=== PATIENT | male | born 1960 | race Caucasian/White ===

== ENCOUNTER 2021-03-14 10:40 | Inpatient (IN) | payer OTHER ==
[~2021-03-14] VITALS: Ht 190.5 cm; Wt 117.9 kg
--- NOTE | 2021-03-14 16:44 | NUR ---
THIS RN DOWN TO E.R TO BRING PT. RT PRESENT WELL TO TRANSFER PT'S CPAP. PT ALERT AND ORIENTED AND WAS BROUGHT DOWN TO THE CCU VIA NONREBREATHER AT 15L. PT ARRIVED TO CCU AT 1540. PT ABLE TO STAND UP AND PIVOT OVER TO THE CCU BED. RT THEN PLACED PT ON THE CPAP AT 10 AND 60% FIO2. PT VITALS TAKEN, PT ASSESSED. SCHEDULED IV REMDESEVIR STARTED ORDERED ALONG WITH PRN TYLENOL FOR A TEMPERATURE OF 100.0. REMDESEVIR COMPLETE WHILE ASSESSING PT AND PT WAS SALINE LOCKED. PT ASSISTED OVER TO HIS LEFT SIDE AFTERWARDS AND WAS TITRATED DOWN TO 50%. PT REPORTS NO FURTHER NEEDS AT THIS TIME AND IS NOW RESTING ON HIS LEFT SIDE, WILL CONTINUE PLAN OF CARE. CALL LIGHT IN REACH, BED IN LOWEST POSITION.
--- NOTE | 2021-03-14 19:00 | NUR ---
THIS RN IN TO CHECK ON PT. PT LAYING IN BED AWAKE AND ALERT ON THE CPAP, SETTINGS UNCHANGED, SPO2 92%. PT ASKED IF HE NEEDED TO VOID, PT STATED YES. PT ASSISTED IN STANDING AT THE BEDSIDE TO USE THE URINAL. PT PUT ON 100% FIO2 WHILE STANDING UP AND MAINTAINED AN SPO2 AT 95-100% BUT DID BECOME SOB WITH EXERTION. PT ABLE TO VOID 500ML OF OBIE URINE WHICH PT STATES HAS BEEN HIS URINE COLOR FOR RECENTLY. PT NOW BACK TO BED AND ASSISTED IN LAYING ON HIS RIGHT SIDE. PT REPORTS NO FURTHER NEEDS, FIO2 BACK TO 50%, SPO2 AT 93%. PT REPORTS NO FURTHER NEEDS WHEN ASKED, WILL CONTINUE PLAN OF CARE. CALL LIGHT IN REACH, BED IN LOWEST POSITION.
--- NOTE | 2021-03-14 19:30 | NUR ---
REPORT RECEIVED FROM TIMBO NYE. PT RESTING IN BED, HR 60'S AND SPO2 93%.
--- NOTE | 2021-03-14 21:00 | NUR ---
pt assessment completed, discussed plan of care with pt and education about proning. pt now in prone position. lungs sound dim in the bases, with fine crackles auscultated in the left lower lung. plan of care establish, medications administered. call light wihtin reach. denies further needs at this time
--- NOTE | 2021-03-14 21:29 | NUR ---
pt now back in left side laig position of cpap. fio2 decreased to 55% at this time. call light within reach. no futher needs at this time
--- NOTE | 2021-03-14 23:42 | NUR ---
PT ASSESSMENT COMPLETED. PT REMAINS ON CPAP AT 60% WITH SPO2= 95%. HEART RATE IN THE 50S AT REST. BREATHING REGULAR AND APPEARS UNLABORED. PT DENIES PAIN OR DISCOMFORT. CALL LIGHT WITHIN REACH. WILL CONTINUE TO MONITOR
--- NOTE | 2021-03-15 01:18 | NUR ---
PT REMAINS LYING ON LEFT SIDE WITH CPAP IN PLACE AT 60% FIO2, SPO2 93% AND HR 50'S, OCCASIONAL DIP DOWN INTO 40'S.
--- NOTE | 2021-03-15 03:30 | NUR ---
ASSESSMENT COMPLETED. PT TAKEN OFF CPAP AT THIS TIME. ORAL CARE PROVIDED. PT DRANK WATER, AND PLACE ON 15 L ON OXYMASK. FINE CRACKLES AUSCULTATED IN LEFT LOWER AIR FIELD. PT SAT UP ON SIDE OF THE BED, SHORT OF BREATH AND TACHYPNEIC WITH EXERTION. NOW LAYING ON RIGHT SIDE, CALL LIGHT WITHIN REACH. DENIES FURTHER NEEDS AT THIS TIME.
--- NOTE | 2021-03-15 05:29 | NUR ---
LAB IN ROOM TO DRAW BLOOD
--- NOTE | 2021-03-15 06:36 | NUR ---
PT UP TO VOID. VOIDED 600 MLS OF CONCENTRATED URINE. BACK IN BED, BLOOD DRAWN AND SENT TO LAB. ON CPAP AGAIN AT 60% FIO2. NOW LAYING ON RIGHT SIDE, CALL LIGHT WITHIN REACH. NO FURTHER NEEDS AT THIS TIME.
--- NOTE | 2021-03-15 08:40 | NUR ---
SHIFT REPORT RECEIVED FROM PARRIS ROACH. ASSESSMENT COMPLETED. PT IS ALERT/ORIENTED, DENIES PAIN. LUNGS CLEAR WITH FINE CRACKLES IN BASES. WAS ON CPAP OF 10 @ 60%, PLACED ON 15L OXYMASK FOR BREAKFAST. HR REGULAR. BOWEL TONES ACTIVE. URINAL EMPTIED. SKIN GROSSLY INTACT WITHOUT EDEMA. IV SITES INTACT AND PATENT. PT DENIES FURTHER NEEDS AT THIS TIME, CALL LIGHT WITHIN REACH.
--- NOTE | 2021-03-15 09:30 | NUR ---
PT HAS FINISHED WITH BREAKFAST, BACK ONTO CPAP OF 10 @ 60% AT THIS TIME. PT SIDE LYING ON LEFT CURRENTLY.
--- NOTE | 2021-03-15 12:30 | NUR ---
ASSESSMENT COMPLETED. PT REMAINS ON CPAP 10 @ 60%, PLACED HIM ON 15L OXYMASK FOR LUNCH. PT STATES HIS BACK IS BOTHERING HIM BEING IN THE BED. ASSISTED HIM TO REPOSITION IN BED. REMAINDER OF ASSESSMENT UNCHANGED. CALL LIGHT WITHIN REACH.
--- NOTE | 2021-03-15 13:00 | NUR ---
PT FINISHED WITH LUNCH, ONLY ATE THE FRUIT CUP BUT STATES HE FEELS FULL. BACK ON CPAP 10 @ 60%. REPOSITIONED TO LEFT SIDE FROM SUPINE.
--- NOTE | 2021-03-15 14:51 | NUR ---
PT RESTING IN BED WITH CPAP IN PLACE, SETTINGS UNCHANGED. PT HAS NOT VOIDED SINCE THIS MORNING, DR. BENAVIDES NOTIFIED. NO NEW ORDERS RECEIVED, WILL ENCOURAGE PT TO INCREASE PO INTAKE OF FLUIDS. R.T. CALLED FOR HIGH FLOW NC SET UP SO THAT PT CAN BE OFF CPAP.
--- NOTE | 2021-03-15 15:30 | NUR ---
PT ON 15L HIGH FLOW NC AT THIS TIME TO ENCOURAGE PO FLUID INTAKE. UP TO BSC PER REQUEST, VOIDED AND HAD LIQUID BM FOR TOTAL VOLUME OF 1000ML. PT PROVIDED OWN PERICARE AND RETURNED TO BED. WITH ACTIVITY, SPO2 DECREASED TO 75%, PLACED BACK ON CPAP 10 @ 60%. REMAINDER OF ASSESSMENT UNCHANGED. CALL LIGHT WITHIN REACH.
--- NOTE | 2021-03-15 17:27 | NUR ---
PT PLACED ON 15L HIGH FLOW NC FOR DINNER.
--- NOTE | 2021-03-15 18:03 | NUR ---
PT FINISHED 100% OF DINNER, TOLERATED WELL. REMAINS ON 15L HIGH FLOW NC, SPO2 STABLE 93-94%, PT WISHES TO STAY ON NC FOR THE TIME BEING. FRESH ICE WATER PROVIDED, DENIES FURTHER REQUESTS, CALL LIGHT WITHIN REACH.
--- NOTE | 2021-03-15 18:56 | EKG ---
[facility] [address] [facility] [place], [place] [address] Signed Sinus tachycardia Otherwise normal ECG No previous ECGs available Confirmed by PATRICIO MYERS MD ([id number]) on 03/15/2021 6:56:26 PM Electronically Signed By: PATRICIO MYERS MD 03/15/21 1856 PATIENT NAME: AMANDAJENNIFER Electrocardiogram DATE OF : 62 PHYSICIAN: PATRICIO MYERS MD REPORT #: [id number] REPORT IS CONFIDENTIAL AND NOT TO BE RELEASED WITHOUT AUTHORIZATION
--- NOTE | 2021-03-15 19:38 | NUR ---
REPORT RECEIVED FROM JOSE NYE. PT IN BED RESTING WEARING HIGH FLOW CANNULA, SPO2 97%, PT DENIES NEEDS AT THIS TIME.
--- NOTE | 2021-03-15 20:27 | NUR ---
PT GOT UP TO BSC TO HAVE STOOL/URINE MIX 1L. BACK TO BED, ASSESSMENT DONE LUNGS WITH FEW CRACKLES HEARD IN BASES, OCCASIONAL COUGHING HEARD WHICH PT REPORTS IS PRODUCTIVE. PT ASSISTED INTO PRONE POSITION AND WILL TRY TO TOLERATE IT LONG HE CAN. PT CURRENTLY WEARING HIGH FLOW OXGYEN 15L WITH SPO2 85-86% STILL RECOVERING FROM ACTIVITY.
--- NOTE | 2021-03-15 20:32 | NUR ---
PT SATS NOW UP TO 92% WITH NRB AT 15L, RR 22.
--- NOTE | 2021-03-15 20:46 | NUR ---
PT ASSISTED TO BEDSIDE COMMODE FOR A BM. O2 SAT DROPPED TO 80% WITH AMBULATION, BUT RECOVERED WITHIN A FEW MINUTES. PT. LEFT WITH CALL LIGHT ON COMMODE. INSTRUCTED TO CALL WHEN FINISHED.
--- NOTE | 2021-03-16 00:38 | NUR ---
IN ROOM FOR ASSESSMENT. ASSISTED PT INTO A LEFT SIDE LAYING POSITION AND SWITCHED SUPPLEMENTAL OXYGEN FROM HIGH FLOW TO CPAP. LUNG SOUNDS REMAIN UNCHANGED. PT DENIES PAIN OR DISCOMFORT. SPO2 =92 PERCENT. IV FLUIDS INFUSING. CALL LIGHT WITHIN REACH. WILL CONTINUE TO MONITOR.
--- NOTE | 2021-03-16 02:32 | NUR ---
PT CONT TO REST WEARING CPAP, SPO2 93%, HR 40-50'S RR 18.
--- NOTE | 2021-03-16 03:11 | NUR ---
PT AWAKENS EASILY FOR VS/ASSESSMENT. DENIES NEEDS, STATES HE HAS BEEN ABLE TO SLEEP. DENIES NEEDS AT THIS TIME.
--- NOTE | 2021-03-16 05:20 | NUR ---
PT UP TO BSC, OXYGEN SATURATIONS DOWN INTO THE 70S. BACK IN BED AND SWITCHED FROM HIGH FLOW OXYGEN TO CPAP. TOOK SEVERAL MINUTES FOR PATIENT TO GET SATURATIONS BACK ABOVE 90%. PT URINATED 700 MLS OF DARK OBIE COLORED URINE. BLOOD DRAWN AND SENT TO LAB. PT NOW RESTING ON LEFT SIDE, CALL LIGHT WITHIN REACH, FRESH WATER PROVIDED. NO FURTHER NEEDS AT THIS TIME.
--- NOTE | 2021-03-16 06:15 | NUR ---
PT CALLED BECAUSE CPAP WAS ALARMING, IN TO HELP PT AND HELP REPOSITION. NO FURTHER NEEDS.
--- NOTE | 2021-03-16 06:43 | NUR ---
PT RESTING IN BED ON CPAP 16/60%, DENIES NEEDS.
--- NOTE | 2021-03-16 07:30 | NUR ---
REPPORT RECIEVED. RESTING ON CPAP.
--- NOTE | 2021-03-16 08:20 | NUR ---
ASSESSMENT DONE. ROUTINE MEDICATIONS GIVEN. PATIENT IS TALKATIVE AND IN GOOD SPIRITS. RT IN ROOM. CPAP O2 DECREASED TO 50 FROM 60.
--- NOTE | 2021-03-16 08:30 | NUR ---
SITTING UP IN BED FOR BREAKFAST. IVF ON HOLD WHILE EATING BREAKFAST. PATIENT IS TAKING PO WELL.
--- NOTE | 2021-03-16 09:32 | NUR ---
PATIENT FINISHED WITH BREAKFAST, FRESH ICE WATER PROVIDED AND CPAP ON AT THIS TIME.
--- NOTE | 2021-03-16 09:50 | NUR ---
DR. MYERS HERE TO SEE PATIENT. PATIENT REMAINS ON CPAP AT 50% FIO2, O2 SATS 91-93.
--- NOTE | 2021-03-16 10:22 | NUR ---
RESTING ON CPAP AT THIS TIME. HOB ELEVATED. TALKED WITH PATIENT ABOUT HOW IMPORTANT IT IS TO REPOSITION. INDICATES UNDERSTANDING.
--- NOTE | 2021-03-16 12:24 | NUR ---
HAS BEEN RESTING ON CPAP MOST OF MORNING. DENIES PAIN. ASSESSMENT UNCHANGED. AWAITING LUNCH.
--- NOTE | 2021-03-16 12:35 | NUR ---
OOB TO COMMODE WITH ASSIST. O2 SOURCE HI-FLOW O2 AT 15 LITERS. INCREASED WOB WITH EXERTION. O2 SAT UPON TRANSFER TO COMMODE DOWN TO 80. CPAP APPLIED. SPONGE BATH GIVEN WHILE UP TO COMMODE. O2 SAT UP TO 90'S. BACK TO BED, ALLOWED PATIENT TO REST ON CPAP FOR APPROX 10 MIN THWN TO HI-FLOW AT 15 LITES TO EAT LUNCH. HAS OCC PRODUCTIVE COUGH.
--- NOTE | 2021-03-16 17:30 | NUR ---
TYLENOL, ROBITUSSIN AND TESSLON GIVEN. PATIENT SITTING UP IN BED FOR DINNER.
--- NOTE | 2021-03-16 18:00 | NUR ---
SITTING UP IN BED FOR DINNER. NOW ON HI-FLOW AT 15 LITERS.
--- NOTE | 2021-03-16 18:15 | NUR ---
TOOK DINNER WELL. CPAP REAPPLIED. FIO2 AT 45%, PRESSURE-10
--- NOTE | 2021-03-16 19:30 | NUR ---
PT REPORT RECIEVED FROM DAY SHIFT RN, CARE OF PATIENT ASSUMED AT THIS TIME. PT LAYING IN LEFT SIDE LAYING POSITION ON CPAP. OXYGEN SATURATIONS AT 92% AT THIS TIME. CALL LIGHT WITHIN REACH. WILL CONTINUE TO MONITOR.
--- NOTE | 2021-03-16 21:00 | NUR ---
ASSESSMENT AND MEDICATION ADMINISTRATION COMPLETED. PT ALERT AND OREINTED. ON CPAP AT THIS TIME. PT LUNGS SOUND CLEAR THROUGHOUT, BUT PT VISIBLY TACHYPENIC WITH EXERTION. PLAN OF CARE ESTABLISHED AT THIS TIME. ALL QUESTIONS ANSWERED. PRN MEDICAITON GIVEN FOR COUGH. CALL LIGHT WITHIN REACH. WILL CONTINUE TO MONITOR.
--- NOTE | 2021-03-16 22:02 | NUR ---
pt up to BSC at this time to void. pt stayed on cpap with amublation and activity. saturations maintained in the mid 90s. Pt voided 1,000 mls of dark delmer urine. pt now back in bed in left side laying position. call light within reach. Denies further needs at this time.
--- NOTE | 2021-03-17 00:21 | NUR ---
PT RESTING ON BIPAP, BREATHING EVEN AUND UNLABOERD RR=18, SPO2 = 93%, HEART RATEIN THE 50S AT REST. CPAP IN PLACE, CALL LIGHT WITHIN REACH. WILL CONTINUE TO MONITOR.
--- NOTE | 2021-03-17 02:11 | NUR ---
IN TO CHECK ON PT AND DO VS/ASSESSMENT. PT SWITCHED TO CPAP AND PLACED ON HIGHFLOW CANNULA AT 10L WITH SPO2 97%. DENIES NEEDS, PLANS TO SIT UP IN BED AND LOOK ON PHONE FOR A WHILE. LUNGS CLEAR/DIM IN BASES.
--- NOTE | 2021-03-17 03:27 | NUR ---
PT RESTING ON HIGH FLOW CANNULA WITH SPO2 89-90%, RR 26, HR 50'S.
--- NOTE | 2021-03-17 06:00 | NUR ---
IN TO CHECK ON PT, DRAW AM LABS. PT SITTING UP IN BED, DENIES NEEDS, REMAINS ON HIGH FLOW CANNULA AT 10L WITH SPO2 90%. BREAKFAST ORDERED, NO FURTHER NEEDS.
--- NOTE | 2021-03-17 07:30 | NUR ---
REPORT RECIEVED. PATIENT UP TO COMMODE, WHILE UP TO COMMODE MODIFIED SPONGE BATH GIVEN. WITH TRANSFER PATIENT ON CPAP AT 45% FIO2, INCREASE WOB NOTED WITH TRANSFER. PATIENT IS VERY TALKATIVE, STATES HE IS FEELING BETTER TODAY. TALKED WITH PATIENT ABOUT POC FOR DAY, PATIENT IS UNDERSTANDING. RETURNED TO BED W/O INCIDENT. HOB ELEVATED.
--- NOTE | 2021-03-17 08:30 | NUR ---
CPAP ON HOLD, NOW ON HI-FLOW O2 AT 15 LITERS FOR BREAKFAST.
--- NOTE | 2021-03-17 08:45 | NUR ---
TYLENOL 650 MG, ROBITUSSIN, TESSLON FREDY, GIVEN FOR COUGH.
--- NOTE | 2021-03-17 09:00 | NUR ---
TOOK BREAKFAST WELL. WILL ON HI-FLOW NC AT 15 L, SHAVE GIVEN. CONTINUES TO SIP ON COFFEE.
--- NOTE | 2021-03-17 09:19 | NUR ---
PATIENT SWITCHED FROM CPAP TO VAPOTHERM. PATIENT SITTING UP IN FOR BREAKFAST. FRESH ICE WATER PROVIDED. VITALS CHARTED. NO OTHER NEEDS AT THIS TIME
--- NOTE | 2021-03-17 10:15 | NUR ---
REMAINS ON HI-FLOW O2 AT 15 L. PATIENT IS TOLERATING THIS 02 SOURCE WELL. RESP EQUAL AND NON-LABORED. DENIES FEELING SHORT OF BREATH. CPAP REMAINS ON STANDBY, WILL USE PRN DEPENDING ON PATIENT S/S.
--- NOTE | 2021-03-17 12:00 | NUR ---
THIS MANAGER SCIENCE IN ROOM WITH PATIENTS LUNCH. PATIENT SBA TO BSC. WILL CALL WHEN READY. CALL LIGHT IN REACH
--- NOTE | 2021-03-17 13:49 | NUR ---
REPORT RECEIVED FROM PARRIS ANGELA. AWAITING PTS ARRIVAL TO MED/SURG.
--- NOTE | 2021-03-17 13:58 | NUR ---
PT ARRIVED FROM CCU, TRANSPORTED BY CHAIR. PT DENIES PAIN AND NASUEA. PT REMAINS UP TO CHAIR WITH OXGYEN SATURATIONS 89-92% ON 15L O2 BY HIGH FLOW NC WITH HUMIDIFICATION. IV TO RIGHT AC DOES NOT FLUSH. ADJUST AND CONTINUES TO NOT FLUSH. IV DC'D PER PROTOCOL, GAUZE AND COBAN APPLIED. IV TO LEFT AC REMAINS WNL, NO S/S OF PHLEBITIS NOTED. LUNG SOUNDS CLEAR THROUGHOUT. PT REPORTS PRODUCTIVE COUGH "A COUPLE OF TIME" WITH YELLOW SPUTUM. PT DEMONSTRATES USE OF I.S. REACHING . PT DEMONSTRATES ABILITY TO BREATH IN THROUGH NOSE AND OUT THROUGH MOUTH AND CONCENTRATE ON HIS BREATHING WITHOUT PROMPTING. PT DENIES LOSS OF SENSE OF TASTE AND SMELL AND REPORTS HE HAD A VERY LARGE LUNCH "WOW THAT [employer], [facility]." PT REPORTS ONGOING DIARRHEA BUT STATES "IT'S GETTING MORE SOLID." STAND BY ASSIST UP TO BEDSIDE COMODE. PT HAS LARGE SOFT BROWN BOWEL MOVEMENT AND VOIDS WITHOUT ISSUE. PT DOES SELF MARITZA CARE. OXGYEN SATURATIONS DROP TO 86% WITH ACTIVITY. PT RECOVERS QUICKLY. PT ABLE TO TELL LONG STORIES WITHOUT STOPPING TO CATCH HIS BREATH. PT ORIENTED TO ROOM AND UPDATED ON PLAN OF CARE. PT DEMONSTRATES USE OF CALL LIGHT. PT DENIES ADDITIONAL REQUESTS OR COMPLAINTS. CALL LIGHT WITHIN REACH.
--- NOTE | 2021-03-17 14:00 | NUR ---
PATIENT MOVED FROM THE CCU TO THE MEDICAL SURGICAL FLOOR. PATIENT WAS ON 15 LITERS OXY MASK. PATIENT OXYGEN SATURATION WAS 92%. BREATHING WAS EQUAL AND NONLABORED ON TRANSER. PATIENT CARE WAS TRANSFERRED TO PARRIS ROSAS.
--- NOTE | 2021-03-17 14:40 | NUR ---
THIS RN TO ROOM TO CHECK ON PT. PT REMAINS UP TO CHAIR. OXGYEN SATURATIONS REMAIN 89-94% ON 15L O2 BY NC. ORAL CARE SUPPLIES PROVIDED FOR PT. PT PERFORMS SELF ORAL CARE. NO ADDITIONAL REQUESTS OR COMPLAINTS. CALL LIGHT WITHIN REACH.
--- NOTE | 2021-03-17 16:00 | NUR ---
IV REMDISIVIR INFUSING FOR 30 MINUTES, PATIENT DENIES OTHER NEEDS. ILEANA, RN
--- NOTE | 2021-03-17 17:33 | NUR ---
PT CALL LIGHT ON. PUMP ALARMING, INFUSION AND FLUSH COMPLETE. IV ASSESSED, WNL. FLUSHED AND SALINE LOCKED PER PROTOCOL, ALCOHOL CAP APPLIED. VITAL SIGNS STABLE.PT ORDERED FRUIT FOR DINNER, DELIVERED. PT NOW REQUESTS ADDITIONAL FOOD (CHEESBURGER, PUDDING AND CHOCOLATE MILK) STATING HIS APPITTIE HAS IMPROVED. I.S. USE DEMONSTARTED, PT REACHES 1750ML X5. PT TALKING IN LONG SENTENCES TELLING STORIES, NO SHORNESS OF BREATH NOTED. OXGYEN SATURATIONS OF 90-95% ON 15L O2 BY HIGH FLOW NC. PT DENIES ADDITIONAL REQUESTS OR COMPLAINTS. CALL LIGHT WITHIN REACH.
--- NOTE | 2021-03-17 18:10 | NUR ---
ADDITIONAL DINNER ORDER ARRIVED. DELIVERED TO PT. PT REMAINS UP TO CHAIR. OXYGEN SATURATION OF 94% ON 15L O2 BY NC. PT CONTINUES TO TELL STORIES, NO SHORTNESS OF BREATH NOTED. PT DENIES ADDITIONAL REQUESTS OR COMPLAINTS. ICE WATER REFILLED. CALL LIGHT WITHIN REACH.
--- NOTE | 2021-03-17 18:51 | NUR ---
PT TRANSFERED FROM CCU FOR COVID PNEUMONIA. PT UP WITH STAND BY ASSIST TO BEDSIDE COMODE. PT WEANED TO 15L O2 BY HIGH FLOW NASAL CANULA AND MAINTAINING OXYGEN SATURATIONS ABOVE 89-95%. PT TOLERATING REGULAR DIET WITH EXCELLENT APPITITE. PT PARTICIPATING IN PRONING PROTOCOLS AND USING I.S. PT VOIDING QUANTITY SUFFICIENT. LARGE LOOSE/SOFT STOOL NOTED THIS SHIFT. PT USES CALL LIGHT AND MAKES NEEDS KNOWN.
--- NOTE | 2021-03-17 19:40 | NUR ---
RECEIVED REPORT FTROM DAY SHIFT RN. PATIENT IS RESTING IN RECLINER. PATIENT DENIES ANY NEEDS. CALL LIGHT IN REACH.
--- NOTE | 2021-03-17 20:45 | NUR ---
PATIENT ASSESMENT COMPLETED. PATIENT ASSISTED TO THE RESTROOM. PATIENT JIMENA TO VOID. PATIENT IS NOW IN BED RESTING. PATIENT IS ON 9L VIA NC-Pairin FLOW. PATIENT TOLERATED ACTIVITY WELL. PATIENTS SCHEDULED MEDICATIONS GIVEN PER ORDER. PATIENT GIVEN PRN TYLENOL PER REQUEST. PATIENT GIVEN PRN COUGH MEDICATION PER ORDER. PATIENTS VITALS TAKEN AND RECORDED. INAKE AND OUPUT RECORDED. PATIENT DENIES ANY SOB. PATIENT PLACED ON CPAP. PATIENTS CALL LIGHT AND BELONGINGS ARE WITHIN REACH.
--- NOTE | 2021-03-17 23:03 | NUR ---
PATIENT IS RESTING IN BED WITH EYES CLOSED, WEARING CPAP. PATIENTS OXYGEN SATURATION IS 94%. CALL LIGHT IN REACH.
--- NOTE | 2021-03-18 01:43 | NUR ---
PATIENT OFF BIPAP AND PLACE ON 13L VIA HI-FLOW. PATIENT DENIES ANY FURTHER NEEDS. CALL LIGHT IN REACH.
--- NOTE | 2021-03-18 03:52 | NUR ---
PATIENT IS RESTING IN BED WITH EYES CLOSED, RR 18. OXYGEN SATURATION IS 95% ON 13L VIA HI FLOW. CALL LIGHT IN REACH.
--- NOTE | 2021-03-18 05:04 | NUR ---
PATIENT GIVEN PRN COUGH MEDICATION PER ORDER. VITALS TAKEN AND RECORDED. INTAKE AND OUTPUT RECORDED. PATIENT ASSISTED TO THE RESTROOM A SBA. PATIENT WAS ABLE TO VOID. PATIENTS BLOOD DRAWN AND SENT TO LAB. NO FURTHER NEEDS NOTED CALL LIGHT IN REACH.
--- NOTE | 2021-03-18 07:30 | NUR ---
Report received from Maninder NYE. Pt resting at this time with no needs, will continue plan of care.
--- NOTE | 2021-03-18 09:05 | NUR ---
Scheduled medications completed and assessment completed. Dr Dalton in room assessing patient. He is sitting up in chair and on 15L NC O2. He is chatty and states feeling well. No PRN medications needed at this time.
--- NOTE | 2021-03-18 10:23 | NUR ---
Patient is in chair. Shower is set up in case the patient wants to take a shower independetly. Vitals, I&Os are done.
--- NOTE | 2021-03-18 10:43 | NUR ---
SPOKE WITH PATIENT BY ROOM PHONE. PATIENT LIVES AT HOME WITH . HE IS RETIRED. DOES NOT USE DME. DRIVES. DOES NOT HAVE PCP OR INSURANCE. DISCUSSED THIS AND HE STATES HE JUST HASN'T NEEDED A PCP, LAST ONE HE HAD RETIRED. 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 PATIENT STATES HE COULD HAVE GOTTEN SOME, BUT IT WAS $500 AND HE DIDN'T WANT TO PAY THAT. STATES HIS SON HAS A "[employer]I-[employer]LLON [employer]LLAR [employer] COMPANY AND HE IS GOING TO PAY MY BILLS". HE WAS NOT INTERESTED IN PURSUING POSSIBLE STATE INSURANCE. HE PLANS TO RETURN HOME AT DISCHARGE. FAMILY WILL PROVIDE RIDE. HE KNOWS OF NOTHING HE NEEDS. WOULD USE [facility] IF NEEDS OXYGEN SET UP AT HOME. CM WILL CONTINUE TO FOLLOW.
--- NOTE | 2021-03-18 11:00 | NUR ---
Call light answered, pt in bathroom by self, states having diarrhea and "had to hurry to not make a mess", this RN in room and applies nonrebreather at 15L as patient spo2 at 67%. Pt returns to chair with SBA and recovers to 90%, NC returned with 15L O2. Pt states he is "too pissed off" to order lunch after the "state lady called" this morning. Attempted to console. Pt states no needs at this time. Will return shortly.
--- NOTE | 2021-03-18 11:40 | NUR ---
Pt continues to have SPO2 in 80's range, RT called and nonrebreather placed on patient. His SPO2 comes to 92%. Continuing to monitor.
--- NOTE | 2021-03-18 13:30 | NUR ---
Rounded on patient who is sitting up in chair listening to music. He states no needs at this time, continues on the nonrebreather. No further needs at this time. Dinner ordered. Call light in reach.
--- NOTE | 2021-03-18 14:22 | NUR ---
PATIENT UP TO COMMODE TO VOID, I/O DONE. PATIENT GIVEN ICE WATER.
--- NOTE | 2021-03-18 15:02 | NUR ---
Patient said he got his dinner ordered already. Call light is in reach. Vitals, and I&Os are done.
--- NOTE | 2021-03-18 16:40 | NUR ---
09/14 IV remdesevir infusing WNL. Pt sitting up in chair using NRB, states he saw his SPO2 "go to 100" several times. Currently spo2 98%. Pt would like to keep NRB on at this time. Call light in reach.
--- NOTE | 2021-03-18 17:18 | NUR ---
IV infusion complete, saline locked. Dinner delivered, switched to NC at 15L and maintains saturations in 95-97% range. No further needs at this time, call light in reach.
--- NOTE | 2021-03-18 18:12 | NUR ---
Patient vitals, I&Os are already done. Patient's water is full.
--- NOTE | 2021-03-18 19:53 | NUR ---
RECEIVED REPORT FROM DAY SHIFT RN. PATIENT IS RESTING IN BED WATCHING TV. PATIENT DENIES ANY NEEDS. CALL LIGHT IN REACH.
--- NOTE | 2021-03-18 20:50 | NUR ---
PATIENT ASSESMENT COMPLETED. PATIENTS SCHEDULED MEDICATIONS GIVEN PER ORDER. PRN MEDICATION FOR COUGH GIVEN PER ORDER. PATIENT IS RESTING IN RECLINER. PATIENT DENIES ANY SOB. PATIENT REMAINS ON 15 HI-FLOW VIA CA. PATIENT IS UP IN RECLINER RESTING. PATIENT IS LISTENING TO MUSIC ON HIS PHONE. PATIENT DENIES ANY FURTHER NEEDS. CALL LIGHT IN REACH.
--- NOTE | 2021-03-18 22:11 | NUR ---
RT IN ROOM. PATIENT IS NOW IN BED WEARING CPAP. CALL LIGHT AND BELONGINGS ARE WITHIN REACH.
--- NOTE | 2021-03-18 23:51 | NUR ---
PATIENT RESTING IN BED WEARING CPAP, PLAYING ON PHONE. NO NEEDS NOTED. CALL LIGHT IN REACH.
--- NOTE | 2021-03-19 01:32 | NUR ---
PATIENT CALLED AND STATED "I TOOK MY MASK OFF". PATIENT IS BACK ON 15L VIA NC HI-FLOW. PATIENT EDUCATED ON THE IMPORATNACE OF WEARING CPAP. PATIENT STATED "WHAT DO YOU WANT ME TO DO, LAY HERE AND WEAR IT". EDUCATED PATIENT ON DIFFERENT CHOICES PATIENT HAS WITH POSITIONAL CHANGES WITH NC VC CPAP. PATIENT APPEARS FRUSTRATED. PATIENT STATED "I JUST CANT SLEEP ANYMORE." OFFERED NEWSPAPER, BOOK, OR TO TURN THE TV ON FOR THE PATIENT. PATIENT DENIED. OFFERED TO ASSIST PATIENT TO THE CHAIR. PATIENT DENIED. PATIENT THEN STATED "I TOLD THE DR I AM NOT GOING HOME WITH OXYGEN." EDUCATED PATIENT THAT SOME PEOPLE GO HOME WITH OXYGEN AND WE CAN CROSS THAT PATH WHEN HE IS CLOSE TO DISCHARGE. PATIENT STATED "YOU NEED TO GET YOUR SHIT STRAIGHT." ASKED PATIENT WAHT HE MEANT BY THAT. PATIENT STATED "YOU GUYS CANT KEEP YOUR SHIT STRAIGHT ON WHAT YOU WANT ME TO DO." EDUCATED PATIENT THAT TREATING COVID PATIENTS WITH OXYGEN ISNT ALWAYS EXACT, SOMTIMES WE TRY DIFFERENT OPTIONS SUCH CPAP OR DIFFERENT TYPES OF OXYGEN ADMINISTRATIONS. PATIENT CONTINUES TO APPEAR FRUSTRATED. REASSURED PATIENT. WILL HAVE RT COME AND TALK WITH PATIENT ABOUT OPTIONS. PATIENT DENIES ANY FURTHER NEEDS. CALL LIGHT IN REACH. PATIENT REMAINS ON 15L VIA NC HI FLOW.
--- NOTE | 2021-03-19 03:54 | NUR ---
PATIENT ASSISTED TO REMOVE CPAP AND PLACE 10L VIA NC HI-FLOW BACK ON. PATIENT DENIES ANY FURTHER NEEDS. CALL LIGHT IN REACH.
--- NOTE | 2021-03-19 05:26 | NUR ---
PATIENTS IS RESTING IN BED VISITING WITH RT. PATIENT IS NOW ON 10L VIA NC HI-FLOW. PATIENT DENIES AN SOB. PATIENTS VITALS TAKEN AND RECORDED. INTAKE AND OUTPUT RECORDED. PATIENT DENIES ANY FURTHER NEEDS. CALL LIGHT IN REACH.
--- NOTE | 2021-03-19 07:05 | NUR ---
Report received from Maninder NYE. Will continue plan of care.
--- NOTE | 2021-03-19 08:55 | NUR ---
PATIENT SITTING UP IN BED, ALERT AND ORIENTED AND INTERACTING.
--- NOTE | 2021-03-19 09:59 | NUR ---
Patient was encouraged to use call light when he needs something. Water is refilled. RN is within the room.
--- NOTE | 2021-03-19 10:05 | NUR ---
AWAKE AND ALERT AND INTERACTIVE. FRANCIA ANDRES JUST FINISHING VITAL SIGNS.
--- NOTE | 2021-03-19 10:08 | NUR ---
FLUSHES EASILY, NO BLOOD RETURN.
--- NOTE | 2021-03-19 10:55 | NUR ---
patient up to chair with standby assist. Tolerated well. continues on 15L via high flow NC oxygen. Tele 7 shows 95% currently. Bedside table, water and call light in reach.
--- NOTE | 2021-03-19 12:06 | NUR ---
UP IN CHAIR. JUST HAD A LARGE BM AND URINE OUTPUT. DR MYERS IN TO SEE PATIENT. CONTINUES ON HIGH FLOW WALL O2 AT 15L, SPO2 IS 93% CURRENTLY.
--- NOTE | 2021-03-19 13:51 | NUR ---
RN is in bed, SBA RN and SOLAR INSTALLATION SUPERVISOR. RN is trying to get patient to prone. Call light is in reach.
--- NOTE | 2021-03-19 14:04 | NUR ---
ASSISTED PATIENT TO BED FROM CHAIR. PLACED CPAP ON. PATIENT LAYING ON LEFT SIDE, STATES DOESN'T WANT TO PRONE POSITION CURRENTLY BUT WILL SOON. LIGHTS OFF IN ROOM PER PATIENT REQUEST. CALL LIGHT IN REACH.
--- NOTE | 2021-03-19 15:39 | NUR ---
REQUESTING CPAP OFF, I HELPED HIM TAKE IT OFF AND NOW ON 15L HIGH FLOW NC. STATES BACK IS HURTING AND DOESN'T WANT TO LAY PRONE. REFUSING PAIN MEDICATIONS BUT CHANGING POSITIONS ON OWN STATES HELPING HIS BACK FEEL BETTER.
--- NOTE | 2021-03-19 18:43 | NUR ---
Patient ambulated to chair, SBA. Patient is currently eating dinner. Vitals and I&Os are done.
--- NOTE | 2021-03-19 20:35 | NUR ---
IN ROOM TO CHANGE TELE BATTERY AND TAKE VS. PT DENIES FURTHER NEEDS AT THIS TIME. CALL LIGHT IS CLOSE.
--- NOTE | 2021-03-19 21:21 | NUR ---
UP IN CHAIR, O23 WAS 98% ON 15l, DECREASED TO 12L TELE CPOX 94%. LUNHGS W CRACKLES AT BASES, MOIST PRODUCTIVE COUGH PRESENTT, MEDICATED W TESDSALON PERLES AND COUGH SYRUP. ALERT AND ORIENTED. C/O GENERALIZED PAIN, MEDICATED W TYLENOL. LEGS 1+ EDEMA LE, ELEVATED, AWARE OF PRONING POSITION. NO VOID YET. SAID HE WILL CALL WHEN HE VOIDS. CALL LIGHT AND FLUID AT BEDSIDE.
--- NOTE | 2021-03-19 23:41 | NUR ---
O2 12L, CPOX TELE#[address], SATS 96%, RSTING, IN CHAIR, HOB AND LEGS ELEVATED, CALL LIGHT AND FLUDIS AT BEDSIDE
--- NOTE | 2021-03-20 02:21 | NUR ---
IN CHAIR, O2 12L HIGH FLOW NC, SATS 98-100%, WILL WEAN OFF, AWAKES EASILY, NO RESP DISTRESS, USES URINAL, LEGS ELEVATED, TOLERATING FLUIDS WELL, NO EMESIS. \ON AIRBORNE ISOLATION PRECAUTIONS
--- NOTE | 2021-03-20 03:31 | NUR ---
Pt up in recliner, awakes easily, has been up to BSC and voided QS, no sob with exertion. O2 decreased to 5L, tele/cpox #7 at 98%. Lungs with fine crackles at bases, ocassional moist productive cough present. repositions self in recliner chair, legs elevated. tolerating fluids well, no emesis, no c/o pain. on Airborne isolation precautions. pleasant and cooperative. aware of proning positioning, IS at bedside.
--- NOTE | 2021-03-20 06:14 | NUR ---
pt was on 7L NC high flow. had been satting at 90-92%, desatted to 84-85%, o2 increaed to 8L-10L-12L and sats were still recording at 85-88%. o2 rainsed to 15L satting at 91% as per cpox/tele. no c/o CP, lungs clear, fine crackles R side, medicated with cough syrup again, bringing up clear to yellow colored phlegm. alert and oriented.
--- NOTE | 2021-03-20 06:54 | NUR ---
Dr Dalton notified verbally of pts O2 needs weaned down to 5L then back to 15L no sob, pt was awake. pulse chronic 44-59bpm, asymptomatic. no new orders
--- NOTE | 2021-03-20 07:43 | NUR ---
REPORT RECEIVED FROM VISITOR SERVICES REPRESENTATIVE. PATIENT UP IN CHAIR LISTENING TO MUSIC. STATES JUST BACK TO CHAIR AFTER USING COMMODE. O2 SATS DOWN TO 75%, O2 VIA HIGH FLOW TURNED UP TO 16L AND NOW SATS UP TO 88%, RESTING QUIETLY AND O2 HUMIDIFIED. WORK OF BREATHING NORMAL. ENCOURAGED TO TAKE DEEP BREATHS THROUGH NOSE. STATES NO PAIN.
--- NOTE | 2021-03-20 08:30 | NUR ---
PT WAS EVALUATED FOR HOME OXYGEN QUALIFICATIONS THIS MORINIG, SPO2 ON RA DROPPED TO 87%, PT TITRATED 1LPM REST 88, 2LPM REST 88, 3LPM REST 88, 4LPM REST 88, 4LPM REST 88, 5LPM REST 88, 6LPM REST 92%. PT DURING AVITITY STARTING ON 6LPM DROPPED TO 84% , 7LPM 84%, 8LPM 85%, 9LPM 85%, 10LPM, 85 %, 15LPM 87%. PT REQUIRED AT 15LPM DURING ACTIVITY . PER DOCTOR MYERS TITRATION PT MUST BE ABLE TO TOLERATE 10LPM OR LESS FOR HOME OXYGEN QUALIFICATIONS.
--- NOTE | 2021-03-20 09:05 | NUR ---
Patient is in chair. Call light has been going off on it's own and the RN also observed this. Call light was taken out and replugged in to see if that would help. Call light is still in reach. Vitals, I&Os are done.
--- NOTE | 2021-03-20 10:02 | NUR ---
no requests or complaints. resting in chair.
--- NOTE | 2021-03-20 12:56 | NUR ---
up in chair, CPAP has been removed from the room, continues to use high flow O2 wall O2 at 6L, saturations are 94%. call light in reach, water and table in reach.
--- NOTE | 2021-03-20 14:29 | NUR ---
Patient went to BSC, SBA and back to chair. Vitals, I&Os are done.
--- NOTE | 2021-03-20 14:42 | NUR ---
NO CHANGES IN DISCHARGE PLAN TODAY.
--- NOTE | 2021-03-20 16:24 | NUR ---
NO REQUESTS OR CONCERNS. UP IN CHAIR LISTENING TO MUSIC ON PHONE.
--- NOTE | 2021-03-20 17:12 | NUR ---
up in chair talking on cell phone with his . states no requests or concerns currently.
--- NOTE | 2021-03-20 18:00 | NUR ---
RESTING IN CHAIR WITH LEGS UP. LISTENING TO MUSIC ON PHONE. NO REQUESTS CURRENTLY. CALL LIGHT AND WATER AND TABLE IN REACH.
--- NOTE | 2021-03-20 20:07 | NUR ---
up in chair, O2 NC high flow 7L, cpox/tele#7 98%. lungs clear with fine crackles RLL, c/o occassional dry non productive cough today. medicated with Tessalon Perles, c/o generalized aching, medicated with Tylenol. Tolerating fluids well, no emesis, voiding dark colored urine, QS. had a bm earlier in am stated. cooperative, pleasant, alert and oriented. call light and fluids at bedside. no c/o SOB with exertion, Continues on Airborne isolation precautions
--- NOTE | 2021-03-20 23:59 | NUR ---
RESTING, EYES CLOSED, NO DITRESS, HIGH FLOW NC 7L O2, CPOX 99%. UP INCHAIR, LEGS ELEVATED
--- NOTE | 2021-03-21 02:14 | NUR ---
up in chair, awakes easily, no distress, O2 high flow 7LNC/sats 100%, weaned down to 4L sats 95%. cont to decline proning has not needed. tolerating liquids well, no emesis, voiding QS
--- NOTE | 2021-03-21 04:24 | NUR ---
Contiues on airborne isolation precautions. O2 weaned down from 7L high flow to 4L O2, lungs R side fine crackles, otherwise dim Left base and clear t/o. was medicated with tessalon perles per cough at begining of shift, no further c/o cough. Has been up in chair all this shift, takes short naps. Cpox/tele#[address] current sats 99#, anahy at 45bpm. tolerating liquids well,, uses call light, alert, oriented, pleasant, voiding qs. no c/o sob with exertion, voiding QS. was medicated X1 with Tylenol generalized achiness/
--- NOTE | 2021-03-21 05:49 | NUR ---
0500 - pt up in chair, was on 4L high flow O2 NC, sasts 100%, weaned down to 2L at this time. 0545 - on 2L high flow NC, tele/cpox #[address], sats 96%, pulse 48. has voided QS urine, drinking coffee and watching tv, no c/o pain. Moist occassional cough present at this time, had not coughed all night long, denies need for cough syrup, has taking small naps this shift. uses call light
--- NOTE | 2021-03-21 06:37 | NUR ---
pt on 1L high flow NC O2, tele/cpox sats 93%. up in chair, legs elevated
--- NOTE | 2021-03-21 07:05 | NUR ---
pt on 1L O2, stood up to void, took off pulse ox probe, desatting to 86-88%, O2 up to 1.5L, 91%
--- NOTE | 2021-03-21 09:14 | NUR ---
up in chair, very talkative, O2 at 1.5L humidified. 94% oxygen level.
--- NOTE | 2021-03-21 11:30 | NUR ---
likely plan to go home today. Up in chair, 1-1.5L NC O2 and saturations 95%. No complaints or requests currently.
[2021-03-21] MEDS ORDERED: DEXAMETHASONE6 MG PO (12:17)
== END 2021-03-21 15:49 | disposition home or self-care (01) | DRG 177 ==
LOC: ED 10:40 → CCU 15:26 → MS 03-17 14:26
PROVIDERS: ADMIT Internal Medicine; ATTEND Internal Medicine
PROC: 8E0ZXY6 Isolation (ICD-10-PCS; principal; 2021-03-14)
PROC: XW033E5 Introduction of Remdesivir Anti-infective into Peripheral Vein, Percutaneous Approach, New Technology Group 5 (ICD-10-PCS; 2021-03-14)
PROC: 3E0333Z Introduction of Anti-inflammatory into Peripheral Vein, Percutaneous Approach (ICD-10-PCS; 2021-03-14)
DX: U07.1 COVID-19 (principal); J96.01 Acute respiratory failure with hypoxia; J12.82 Pneumonia due to coronavirus disease 2019; E86.0 Dehydration; K75.9 Inflammatory liver disease, unspecified; R74.01 Elevation of levels of liver transaminase levels; Z98.890 Other specified postprocedural states
CPT/HCPCS: 71045; 80053; 82803; 83605; 83735; 84484; 85025; 87040; 93005; 93010; 94660; 94760; 94761; 94762; 96374; 99285-25; A9270; J1100; J1650; J7050; J7121

== ENCOUNTER 2021-09-08 09:00 | Emergency (ER) | payer BC ==
[~2021-09-08] VITALS: Ht 190.5 cm; Wt 117.5 kg
[~2021-09-08 09:00] MED LIST: DEXAMETHASONE6 MG PO
== END 2021-09-08 10:40 | disposition home or self-care (01) ==
LOC: ED 09:00
DX: N20.0 Calculus of kidney (principal)
CPT/HCPCS: 99283